=== PATIENT | male | born 1995 | race Caucasian/White ===

== ENCOUNTER 2018-05-11 12:02 | Outpatient (REF) | payer MEDICAID, SELFPAY ==
[2018-05-11 22:37] LABS: Abs Immature Grans 0.05 k/cumm (0.0-0.09); Absolute Basophil Count 0.01 k/cumm (0.0-0.2); Absolute Eosinophil Count 0.12 k/cumm (0.0-0.7); Absolute Monocyte Count 0.45 k/cumm (0.11-0.7); Absolute Neutrophil Count 2.17 k/cumm (1.2-6.7); Basophils % 0.2; HGB 14.4 g/dL (13.5-17.5); Immature Grans % 0.8; Lymphocytes % 53.3; Mean Corp. HGB Concentration 35.1 g/dL (32.0-36.0); Mean Corpuscular Volume 88.4 fL (80-95); Mean Platelet Volume 10.4 fL (8.0-11.0); Monocytes % 7.5; Neutrophils % 36.2; Platelet Count 281 x1000/uL (130-400); RBC 4.64 m/cumm (4.50-6.00); RBC Distribution Width 12.6 % (11.8-14.1)
[2018-05-11 22:43] LABS: Hemoglobin A1C 5.3 % (4.5-6.2)
[2018-05-11 23:38] LABS: Cholesterol 247 mg/dL (50-200); HDL Cholesterol 41 mg/dL (40-60); LDL CHOLESTEROL 156 mg/dL (<100); Triglyceride 300 mg/dL (30-150); Vitamin B12 711 pg/mL (193-986)
[2018-05-12 00:05] LABS: TSH (W/Ref FT4) 3.54 uIU/mL (0.358-3.74)
[2018-05-14 14:28] LABS: FREE T4 0.74 ng/dL (0.76-1.46)
== END 2018-05-11 12:22 ==
LOC: NCHCN 12:02
PROVIDERS: Family Medicine; PCP Internal Medicine; Visit Provider Internal Medicine
DX: Z13.9 Encounter for screening, unspecified (principal); Z71.3 Dietary counseling and surveillance; F32.9 Major depressive disorder, single episode, unspecified; R89.1 Abnormal level of hormones in specimens from other organs, systems and tissues
CPT/HCPCS: 80061; 82306; 83721; 82607; 83036; 84439; 84443; 85025

== ENCOUNTER 2018-10-28 10:31 | Emergency (ER) | payer MEDICAID, SELFPAY ==
[2018-10-28 10:35] VITALS: BP 155/81; PULSE 85; RESP 14; TEMP 36.3; O2SAT 99
--- NOTE | 2018-10-28 10:50 | ED.GENADUL_ITS ---
Discharge Plan Disposition Patient Disposition: HOME Condition: Stable Discharge Details Chief Complaint: RespSymp Clinical Impression: Cough Primary Care Provider: MINDY DUCKWORTH ED Provider: Sera Parker Home Meds and New Rx's Prescriptions: Continued methylphenidate HCl 20 mg Tablet 20 mg PO DAILY RF: 0 lamotrigine 25 mg Tablet 25 mg PO DAILY RF: 0 methadone [Methadose] 10 mg/mL Concentrate 90 mg PO DAILY RF: 0 Discharge Instructions Instructions: Asthma (ED), Acute Cough (ED) Additional Instructions: Please return immediately to the emergency department if you develop any new or worsening symptoms or if you become otherwise concerned. It is extremely important to make an appointment to be seen in follow-up for this visit as soon as possible by your primary care doctor. 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 On exam patient is well and nontoxic appearing. Lungs are clear to auscultation bilaterally and respiratory effort is normal. Concern for likely cough variant asthma versus less likely pneumonia, flu, upper respiratory infection. Exam/history is not consistent with PE, ACS, sepsis, acute aortic pathology, other acute emergent life- threatening process. Plan for chest x-ray, flu swab, albuterol inhaler with spacer for home use with teaching by respiratory therapy. Chest x-ray visualized and interpreted by myself in conjunction with radiology over the phone: negative. Patient does not wish to wait for flu swab results at this time. I had a lengthy discussion with patient regarding home care, return to emergency department precautions, and importance of outpatient follow- up with his PCP as soon as possible. Patient verbalizes understanding of the plan and is amenable. All questions were answered. Medical Records Medical records reviewed: Yes I reviewed the patient's medical records. Imaging Data Radiologic Study: Attestation: I personally reviewed and interpreted this imaging study as follows: Lab Data Lab results reviewed: Yes I reviewed the patient's lab results. HPI General Mode of arrival: ambulatory . Date/Time Provider Initiated Documentation: 10/28/18 10:48 . Limitations to Documentation: no limitations . Information obtained by: patient, family, RN notes reviewed and old records reviewed . HPI Narrative: Tim Solorzano is a 23-year-old man with a history of drug use on methadone presenting to the emergency department with cough. Patient is accompanied by his mother who also provides history. Patient reports that he has had a dry nonproductive cough for the past 3 weeks or so. Patient reports that he overall feels well and in his usual state of health. He reports that if he is inside his house and at rest, he does not seem to have any cough, but when he goes outside to smoke a cigarette in the cold he starts coughing. Patient reports that when he smokes cigarettes in the house not in cold weather he usually does not start coughing. He has noticed some very mild shortness of breath over the past 3 weeks that has not really bothered him and seems somewhat worse with exertion. He denies any pain. He smokes approximately a pack of cigarettes per day. Has been eating and drinking as usual. No fever, no rash. Has been eating and drinking as usual. Related Data Home Medications Medication Instructions Recorded Confirmed lamotrigine 25 mg PO DAILY 10/28/18 10/28/18 methadone [Methadose] 90 mg PO DAILY 10/28/18 10/28/18 methylphenidate HCl 20 mg PO DAILY 10/28/18 10/28/18 Allergies Allergy/AdvReac Type Severity Reaction Status Date / Time No Known Allergies Allergy Unverified 10/28/18 10:38 General Stated Complaint: RespSymp JORDY: 4 Review of Systems Review of Systems Constitutional: denies fevers Eyes: denies eye pain ENT: denies facial pain, dental pain, sore throat Cardiovascular: denies chest pain, edema Respiratory: Reports SOB, cough as per HPI GI: denies abdominal pain, vomiting, diarrhea : denies flank pain MSK: denies back pain, neck pain, arthralgias, myalgias Skin: denies rash Neuro: denies headaches, numbness, weakness [facility] Social History Smoking/Tobacco Use Status: Current every day Drug use: Never Do you feel safe in your relationship?: Yes Exam Narrative Exam Narrative: Constitutional: well and [id number], pleasant, conversing normally HENT: head atraumatic/normocephalic/normal inspection, mucous membranes moist Eyes: conjunctiva normal, sclera normal, pupils 3mm b/l Neck: no stridor, normal ROM, trachea midline Chest: normal inspection Resp: normal work of breathing, LCTAB Cardio: normal rate, normal rhythm, no murmur appreciated Back: normal inspection, no rash Skin: warm, dry, normal color, no rash Neuro: alert, not altered, grossly non-focal, normal tone Psych: normal mood, normal affect, normal behavior Course Vital Signs Temperature 36.3 C L 10/28/18 10:35 Pulse 85 10/28/18 10:35 Respiratory Rate 14 10/28/18 10:35 Blood Pressure 155/81 H 10/28/18 10:35 Pulse Oximetry 99 10/28/18 10:35 Temperature 36.3 C L 10/28/18 10:35 Temperature Source Temporal Artery Scan 10/28/18 10:35 Pulse 85 10/28/18 10:35 Respiratory Rate 14 10/28/18 10:35 Respiratory Effort Non-Labored 10/28/18 10:41 Respiratory Depth Normal 10/28/18 10:41 Blood Pressure 155/81 H 10/28/18 10:35 Blood Pressure Position Sitting 10/28/18 10:35 Pulse Oximetry 99 10/28/18 10:35 Oxygen Delivery Method Room Air 10/28/18 10:35 Oxygen Flow Rate 0 10/28/18 10:35 Pain Level 0 10/28/18 10:35
--- NOTE | 2018-10-28 11:18 | DI.RAD_ITS ---
SYMPTOMS/DIAGNOSIS: COUGH PA AND LATERAL CHEST: No priors. The heart is normal in size. The lungs are clear. The mediastinal structures and pleura appear intact. CONCLUSION: Normal chest.
[2018-10-28] MEDS: Albuterol HFA 8 GM 60 PUFF INH IH (11:28)
[2018-10-28] MEDS: Inhaler, Assist Device 1 EACH MC (11:29)
--- NOTE | 2018-10-28 11:30 | RESPIRATORY ---
10/28/18- Instructed Pt on MDI and Spacer use.
== END 2018-10-28 12:10 | disposition home or self-care (01) ==
PROVIDERS: Emergency Provider Student in an Organized Health Care Education/Training Program; PCP Family Medicine
DX: R05 Cough (principal)
CPT/HCPCS: 87449; 99282; 71046

== ENCOUNTER 2021-06-06 22:17 | Outpatient (REF) | payer MEDICAID, SELFPAY ==
[2021-06-06 22:32] LABS: HCT 46.3 % (40.0-50.0); HGB 15.7 g/dL (13.5-17.5); MCH 31.9 pg (27.0-33.0); MCHC 33.9 % (32.0-36.0); MCV 94.1 fL (80-95); MPV 10.5 fL (8.0-11.0); Platelet Count 258 10^3/uL (130-400); RBC 4.92 10^6/uL (4.36-5.78); RDW 12.4 % (11.8-14.1); RDW-SD 43.4 fL; WBC 7.43 10^3/uL (4.4-10.8)
[2021-06-06 22:47] LABS: ALT 79 U/L (16-63); AST 44 U/L (15-37); Albumin 4.1 g/dL (3.4-5.0); Alkaline Phosphatase 91 U/L (46-116); BUN 11 mg/dL (7-18); Bilirubin, Total 0.3 mg/dL (0.2-1.0); CREATININE 1.1 mg/dL (0.70-1.30); Calcium 9.4 mg/dL (8.5-10.1); Calculated LDL 145 mg/dL (<100); Chloride 103 mmol/L (98-107); Cholesterol 238 mg/dL (<200); Glucose 91 mg/dL (74-106); HDL Cholesterol 42 mg/dL (40-60); Potassium 4.4 mmol/L (3.5-5.1); Sodium 139 mmol/L (136-145); Total Protein 7.5 g/dL (6.4-8.2); Triglyceride 257 mg/dL (<150)
[2021-06-07 04:56] LABS: Vitamin D 25 Total 26.4 ng/mL (30-100)
== END 2021-06-06 22:18 | disposition home or self-care (01) ==
LOC: NCHCN 22:17
PROVIDERS: PCP Family Medicine; Visit Provider Registered Nurse
DX: F39 Unspecified mood [affective] disorder (principal); Z00.00 Encounter for general adult medical examination without abnormal findings
CPT/HCPCS: 80053; 80061; 82306; 85027; 84443